=== PATIENT | male | born 1985 | race Asian ===

== ENCOUNTER 2018-09-19 09:34 | Emergency (ER) | payer OTHER ==
[2018-09-19] MEDS ORDERED: LIDOCAINE 1% MPF 5 ML VIAL ONE (10:13)
--- NOTE | 2018-09-19 10:45 | RAD REPORT ---
EXAM DESCRIPTION: RAD - Hand Right 3 View - 09/19/2018 10:34 am CLINICAL HISTORY: laceration COMPARISON: No comparisons FINDINGS: Soft tissue laceration is seen along the ulnar aspect of the fifth finger. No foreign body is seen. No fracture evident.
--- NOTE | 2018-09-19 11:14 | EDPHYS ---
Physician Documentation [facility] Name: James Abreu Age: 33 yrs Sex: Male : 1985 Arrival Date: 09/19/2018 Time: 09:37 Bed 23 Private MD: ED Physician José Miguel Mcarthur HPI: 09/19 10:26 This 33 yrs old Male presents to ER via Ambulatory with complaints of Laceration pm1 - Finger. 10:26 The patient or guardian reports a laceration, irregular, 2 cm(s). The complaints affect pm1 the lateral aspect of PIP of right little finger. Context: The problem was sustained at home, resulted from washing dishes and broken glass. Onset: The symptoms/episode began/occurred 2 hour(s) ago. Modifying factors: The symptoms are alleviated by pressure to area, the symptoms are aggravated by movement. Associated signs and symptoms: Pertinent negatives: cyanosis distally, decreased sensation distally, numbness distally, tingling distally. Severity of symptoms: in the emergency department the symptoms are unchanged. The patient has not experienced similar symptoms in the past. The patient has not recently seen a physician. Historical: - Allergies: 09:45 Toradol; ss - Immunization history:: Adult Immunizations up to date, Last tetanus immunization: up to date. - Social history:: Smoking status: Patient/guardian denies using tobacco. - Ebola Screening: : Patient denies exposure to infectious person Patient denies travel to an Ebola-affected area in the 21 days before illness onset. ROS: 10:26 Constitutional: Negative for fever, chills, and weight loss, Eyes: Negative for injury, pm1 pain, redness, and discharge, ENT: Negative for injury, pain, and discharge, Neck: Negative for injury, pain, and swelling, Cardiovascular: Negative for chest pain, palpitations, and edema, Respiratory: Negative for shortness of breath, cough, wheezing, and pleuritic chest pain, Abdomen/GI: Negative for abdominal pain, nausea, vomiting, diarrhea, and constipation, Back: Negative for injury and pain. 10:26 Neuro: Negative for headache, weakness, numbness, tingling, and seizure. 10:26 MS/extremity: Positive for laceration, of the medial aspect of right 5th finger. Exam: 10:26 Constitutional: This is a well developed, well nourished patient who is awake, alert, pm1 and in no acute distress. Head/Face: Normocephalic, atraumatic. Chest/axilla: Normal chest wall appearance and motion. Nontender with no deformity. No lesions are appreciated. Cardiovascular: Regular rate and rhythm with a normal S1 and S2. No gallops, murmurs, or rubs. Normal PMI, no JVD. No pulse deficits. Respiratory: Lungs have equal breath sounds bilaterally, clear to auscultation and percussion. No rales, rhonchi or wheezes noted. No increased work of breathing, no retractions or nasal flaring. Abdomen/GI: Soft, non-tender, with normal bowel sounds. No distension or tympany. No guarding or rebound. No evidence of tenderness throughout. Back: No spinal tenderness. No costovertebral tenderness. Full range of motion. 10:26 Skin: Appearance: normal except for affected area, injury, laceration(s), the wound is approximately 2 cm(s), with a depth of 0.5 cm(s), of the medial aspect of 5th right little finger. 10:26 Neuro: Orientation: is normal, Motor: is normal, moves all fours, Sensation: is normal, no obvious gross deficits. Vital Signs: 09:45 BP 147 / 92; Pulse 86; Resp 16; Temp 97.1(TE); Pulse Ox 99% on R/A; ss Laceration: 11:11 Wound Repair of 2cm ( 0.8in ) subcutaneous laceration to medial aspect of right fifth pm1 finger. Irregularly shaped.. Distal neuro/vascular/tendon intact. Anesthesia: Digital block administered with 1 mls of 1% lidocaine. Wound prep: Extensive cleansing with hibiclenz by nurse, Wound irrigation with saline by nurse, Wound explored extensively, Copious irrigation. Skin closed with 7 5-0 Prolene using simple sutures and sterile technique. Dressed with 4x4's. Patient tolerated well. MDM: 09:51 Patient medically screened. pm1 11:11 Data reviewed: vital signs. Data interpreted: Pulse oximetry: on room air is 99 %. pm1 Interpretation: normal. Counseling: I had a detailed discussion with the patient and/or guardian regarding: the historical points, exam findings, and any diagnostic results supporting the discharge/admit diagnosis, radiology results, the need for outpatient follow up, to return to the emergency department if symptoms worsen or persist or if there are any questions or concerns that arise at home. 09/19 09:58 Order name: Hand Right 3 View XRAY; Complete Time: 11:14 pm1 09/19 09:58 Order name: Prolene, Sutures; Complete Time: 10:00 pm1 09/19 09:58 Order name: Dressing - Wound; Complete Time: 10:00 pm1 09/19 09:58 Order name: Gloves, Sterile; Complete Time: 10:00 pm1 09/19 09:58 Order name: Setup Suture Tray; Complete Time: 10:00 pm1 Administered Medications: 11:00 Drug: Lidocaine (1 %) 5 ml Volume: 5 ml; Route: Infiltration; ss Disposition: 09/19/18 11:14 Discharged to Home. Impression: Laceration without foreign body of right little finger without damage to nail. - Condition is Stable. - Discharge Instructions: Laceration Care, Adult. - Prescriptions for Keflex 500 mg Oral Capsule - take 1 capsule by ORAL route every 12 hours for 10 days; 20 capsule. - Medication Reconciliation Form, Thank You Letter, Antibiotic Education, Prescription Opioid Use form. - Follow up: Emergency Department; When: As needed; Reason: Worsening of condition. Follow up: Private Physician; When: 10 - 14 days; Reason: Recheck today's complaints, Continuance of care, Staple/Suture removal, Re-evaluation by your physician. - Problem is new. - Symptoms have improved. Addendum: 09/24/2018 10:35 Co-signature as Attending Physician, José Miguel Mcarthur MD I agree with the assessment and k dr plan of care. Signatures: Dispatcher [employer] EDCA José Miguel Mcarthur MD MD kdr Smirch, Shelby, RN RN ss Nnamdi Campa NP [employer] pm1 Corrections: (The following items were deleted from the chart) 09/19 11:19 11:14 09/19/2018 11:14 Discharged to Home. Impression: Laceration without foreign body ss of right little finger without damage to nail. Condition is Stable. Forms are Medication Reconciliation Form, Thank You Letter, Antibiotic Education, Prescription Opioid Use. Follow up: Emergency Department; When: As needed; Reason: Worsening of condition. Follow up: Private Physician; When: 10 - 14 days; Reason: Recheck today's complaints, Continuance of care, Staple/Suture removal, Re-evaluation by your physician. Problem is new. Symptoms have improved. pm1
--- NOTE | 2018-09-19 11:14 | ER ---
Nurse's Notes [facility] Name: James Abreu Age: 33 yrs Sex: Male : 1985 Arrival Date: 09/19/2018 Time: 09:37 Bed 23 Private MD: Diagnosis: Laceration without foreign body of right little finger without damage to nail Presentation: 09/19 09:44 Presenting complaint: Patient states: laceration sustained to R 5th finger while ss washing dishes. Injury occurred 2 hours ago. Laceration still is bleeding small amount. Transition of care: patient was not received from another setting of care. Complicating Factors: There are no complicating factors for this patient. Onset of symptoms was September 19, 2018. Risk Assessment: Do you want to hurt yourself or someone else? Patient reports no desire to harm self or others. Initial Sepsis Screen: Does the patient meet any 2 criteria? No. Patient's initial sepsis screen is negative. Does the patient have a suspected source of infection? No. Patient's initial sepsis screen is negative. Care prior to arrival: None. 09:44 Method Of Arrival: Ambulatory ss 09:44 Acuity: [place] 4 ss Historical: - Allergies: 09:45 Toradol; ss - Immunization history:: Adult Immunizations up to date, Last tetanus immunization: up to date. - Social history:: Smoking status: Patient/guardian denies using tobacco. - Ebola Screening: : Patient denies exposure to infectious person Patient denies travel to an Ebola-affected area in the 21 days before illness onset. Screenin:44 Abuse screen: Denies threats or abuse. Denies injuries from another. Nutritional ss screening: No deficits noted. Tuberculosis screening: No symptoms or risk factors identified. Never had TB. Fall Risk None identified. Assessment: 09:44 General: Appears in no apparent distress. comfortable, Behavior is calm, cooperative, ss Denies fever, feeling ill, fatigue, chills. Pain: Complains of pain in palmar aspect of distal phalanx of right little finger. Neuro: Level of Consciousness is awake, alert, obeys commands, Oriented to person, place, time, situation. Cardiovascular: Pulses are palpable in right radial artery, right posterior tibial artery, left radial artery and left posterior tibial artery. Respiratory: Airway is patent Respiratory effort is even, unlabored, Respiratory pattern is regular, symmetrical. GI: Patient currently denies diarrhea, nausea, vomiting. EENT: Nares are clear Oral mucosa is moist. Derm: Skin is intact, is healthy with good turgor, Skin is pink, warm \T\ dry. normal. Musculoskeletal: Circulation, motion, and sensation intact. Range of motion: intact in all extremities, Swelling absent. Injury Description: Laceration sustained to palmar aspect of distal phalanx of right little finger, palmar aspect of middle phalanx of right little finger and left hand is 0.5 to 2.5 cm long, minimal bleeding/ oozing noted was sustained 2 hours. Vital Signs: 09:45 BP 147 / 92; Pulse 86; Resp 16; Temp 97.1(TE); Pulse Ox 99% on R/A; ss ED Course: 09:37 Patient arrived in ED. as 09:43 Nnamdi Campa NP is PHCP. pm1 09:43 José Miguel Mcarthur MD is Attending Physician. pm1 09:44 Rafaela Bauer RN is Primary Nurse. ss 09:44 Patient has correct armband on for positive identification. Bed in low position. Call ss light in reach. Side rails up X 1. 09:45 Triage completed. ss 09:45 Arm band placed on right wrist. ss 10:34 Hand Right 3 View XRAY In Process Unspecified. EDMS 11:00 Assist provider with laceration repair on right hand and palmar aspect of distal ss phalanx of right little finger that was 2.5 cm. or less using sutures. Set up tray. Performed by Nnamdi Campa RN [employer] Dressed with Patient tolerated well. 11:18 Patient did not have IV access during this emergency room visit. ss Administered Medications: 11:00 Drug: Lidocaine (1 %) 5 ml Volume: 5 ml; Route: Infiltration; Outcome: 11:14 Discharge ordered by . pm1 11:18 Discharged to home ambulatory. 11:18 Condition: good 11:18 Discharge instructions given to patient, Instructed on discharge instructions, follow up and referral plans. medication usage, wound care, Demonstrated understanding of instructions, follow-up care, medications. 11:19 Patient left the ED. Signatures: Dispatcher [employer] EDPR Millicent Franklin as Rafaela Bauer RN RN Marinas, Nnamdi, RN [employer] RN [employer] pm1
== END 2018-09-19 11:19 | disposition home or self-care (01) ==
LOC: ER 09:34
PROC: 0JQJ0ZZ Repair Right Hand Subcutaneous Tissue and Fascia, Open Approach (ICD-10-PCS; principal; 2018-09-19)
DX: S61.216A Laceration without foreign body of right little finger without damage to nail, initial encounter (principal); W25.XXXA Contact with sharp glass, initial encounter; Y93.G1 Activity, food preparation and clean up; Y92.009 Unspecified place in unspecified non-institutional (private) residence as the place of occurrence of the external cause
CPT/HCPCS: 99283